=== PATIENT | female | born 1995 | race Caucasian/White ===

== ENCOUNTER → 2018-10-07 | Outpatient (CLI) | payer SELFPAY ==
--- NOTE | 2018-10-07 20:36 | REP ---
Clinical: Trauma. Fall. Technique: AP, lateral, bilateral oblique views of the right ankle. Findings: Lateral view demonstrates a small avulsion fracture off the anterior-superior margin of the talus along with anterolateral soft tissue swelling. Ankle mortise appears intact. Impression: Acute avulsion fracture off the anterior-superior margin of the talus with soft tissue swelling. Electronically Signed by Demario Tran MD 10/07/2018 08:28 P
== END ==
LOC: M ADAMS 09:07
PROVIDERS: ATTEND Physician Assistant
DX: S92.151A Displaced avulsion fracture (chip fracture) of right talus, initial encounter for closed fracture (principal); X58.XXXA Exposure to other specified factors, initial encounter; Y92.89 Other specified places as the place of occurrence of the external cause